=== PATIENT | female | born 1945 | race Caucasian/White ===

== ENCOUNTER 2019-10-16 04:21 | Observation (INO) ==
[2019-10-16] MEDS ORDERED: Ondansetron 4 MG/2 ML VIAL IVP PRN (07:15)
[2019-10-16] MEDS ORDERED: Naloxone 0.4 MG/ML INJ IVP PRN (07:15)
[2019-10-16 07:56] LABS: Basophils % 0.3 %; Eosinophils % 0.2 %; Hematocrit 32.8 % (35.3-44.9); Hemoglobin 11.4 g/dL (11.5-15.4); Immature Granulocytes % 0.5 % (0-4); Lymphocytes % 14.8 %; Mean Corpuscular HGB Conc 34.8 g/dL (31.6-35.5); Mean Corpuscular Hemoglobin 29.8 pg (28.0-33.3); Mean Corpuscular Volume 85.9 fL (83.0-100.0); Mean Platelet Volume 9.6 fL (9.4-12.4); Monocytes # 0.6 K/mcL (0.0-1.3); Monocytes % 4.7 %; Neutrophils # 10.5 K/mcL (1.6-8.9); Platelet Count 255 K/mcL (140-400); Red Blood Count 3.82 M/mcL (3.82-4.97); Red Cell Distribution Width 14.3 % (11.5-14.5); Segmented Neutrophils % 79.5 %; White Blood Count 13.2 K/mcL (4.3-11.1)
[2019-10-16] MEDS: 0.9 % Sodium Chloride 1,000 ML IVC SCH ×2 (08:45→23:48)
[2019-10-16] MEDS: Pantoprazole 40 MG VIAL IVP SCH ×2 (08:45→18:29)
[2019-10-16 12:03] LABS: Alanine Aminotransferase 11 Units/L (7-52); Albumin 3.1 g/dL (3.5-5.7); Albumin/Globulin Ratio 1.9 (1.1-2.2); Alkaline Phosphatase 81 Units/L (34-104); Aspartate Amino Transferase 14 Units/L (13-39); BUN/Creatinine Ratio 49 (6-26); Blood Urea Nitrogen 37 mg/dL (8-23); Calcium 7.8 mg/dL (8.6-10.3); Carbon Dioxide 28 mEq/L (23-29); Chloride 103 mEq/L (98-107); Globulin 1.6 g/dL (2.4-3.5); Glucose 105 mg/dL (70-105); Osmolality,Calculated 303 (280-300); Potassium 2.7 mEq/L (3.5-5.1); Sodium 142 mEq/L (136-145); Total Protein 4.7 g/dL (6.4-8.9); eGFR For African Americans > 60 (> 60); eGFR For Non-African Americans > 60 (> 60)
[2019-10-16] MEDS ORDERED: Lidocaine -MPF 2% 2 ML VIAL ONE (13:47)
[2019-10-16] MEDS ORDERED: *HR* Propofol 200 MG/20 ML VIAL IVP ONE (13:47)
[2019-10-16] MEDS: Sucralfate 1 GM TABLET PO SCH (18:29)
[2019-10-17] MEDS: 0.9 % Sodium Chloride 1,000 ML IVC SCH (03:47)
[2019-10-17 05:07] LABS: Basophils # 0.1 K/mcL (0.0-0.2); Basophils % 0.7 %; Eosinophils # 0.5 K/mcL (0.0-0.6); Hematocrit 29.7 % (35.3-44.9); Immature Granulocytes % 0.3 % (0-4); Lymphocytes # 1.8 K/mcL (0.6-4.6); Lymphocytes % 24.7 %; Mean Corpuscular HGB Conc 33.7 g/dL (31.6-35.5); Mean Corpuscular Hemoglobin 30.9 pg (28.0-33.3); Mean Corpuscular Volume 91.7 fL (83.0-100.0); Mean Platelet Volume 9.7 fL (9.4-12.4); Monocytes # 0.5 K/mcL (0.0-1.3); Monocytes % 7.2 %; Neutrophils # 4.3 K/mcL (1.6-8.9); Platelet Count 195 K/mcL (140-400); Red Blood Count 3.24 M/mcL (3.82-4.97); Red Cell Distribution Width 14.8 % (11.5-14.5); Segmented Neutrophils % 60.1 %; White Blood Count 7.1 K/mcL (4.3-11.1)
[2019-10-17 05:25] LABS: BUN/Creatinine Ratio 31 (6-26); Blood Urea Nitrogen 20 mg/dL (8-23); Carbon Dioxide 27 mEq/L (23-29); Chloride 107 mEq/L (98-107); Glucose 111 mg/dL (70-105); Osmolality,Calculated 301 (280-300); Potassium 2.9 mEq/L (3.5-5.1); Sodium 144 mEq/L (136-145); eGFR For African Americans > 60 (> 60); eGFR For Non-African Americans > 60 (> 60)
[2019-10-17] MEDS: Pantoprazole 40 MG VIAL IVP SCH ×2 (06:04→18:02)
[2019-10-17 07:53] LABS: Hematocrit 28.6 % (35.3-44.9); Hemoglobin 9.7 g/dL (11.5-15.4)
[2019-10-17] MEDS: Sucralfate 1 GM TABLET PO SCH ×2 (08:15→08:20)
[2019-10-17] MEDS ORDERED: Potassium Chloride Elixir 20 MEQ/15 ML UDC PO ONE (08:18)
[2019-10-17] MEDS ORDERED: Cholecalciferol (D-3) 1,000 UNIT (25MCG) TABLET PO SCH (09:00)
[2019-10-17] MEDS ORDERED: Folic Acid 1 MG TABLET PO SCH (09:00)
[2019-10-17 15:17] LABS: Hematocrit 28.8 % (35.3-44.9); Hemoglobin 9.3 g/dL (11.5-15.4)
[2019-10-17 15:57] VITALS: BP 109/68
[2019-10-17 17:45] LABS: BUN/Creatinine Ratio 24 (6-26); Blood Urea Nitrogen 16 mg/dL (8-23); Calcium 8.4 mg/dL (8.6-10.3); Carbon Dioxide 26 mEq/L (23-29); Chloride 106 mEq/L (98-107); Glucose 111 mg/dL (70-105); Osmolality,Calculated 290 (280-300); Potassium 3.7 mEq/L (3.5-5.1); Sodium 139 mEq/L (136-145); eGFR For African Americans > 60 (> 60); eGFR For Non-African Americans > 60 (> 60)
== END 2019-10-17 18:26 | disposition home or self-care (01) ==
LOC: CDU → SUATTDRO 06:05
PROVIDERS: ADMIT Family Medicine; ATTEND Internal Medicine